=== PATIENT | female | born 1945 | race Two or more races ===

== ENCOUNTER 2020-11-23 21:19 | Emergency (ER) | payer OTHER ==
[~2020-11-23] VITALS: Ht 177.8 cm; Wt 70.3 kg
[2020-11-23] MEDS ORDERED: LANTUS SOL100 UNIT/1 (21:55)
[2020-11-23] MEDS ORDERED: METFORMIN HCL500 MG (21:56)
== END 2020-11-24 07:08 | disposition designated cancer center or children's hospital (05) ==
LOC: ER 21:19
DX: I63.89 Other cerebral infarction (principal); R41.0 Disorientation, unspecified; R47.01 Aphasia; R53.1 Weakness

== ENCOUNTER 2022-11-21 13:23 | Outpatient (CLI) | payer OTHER ==
[~2022-11-21 13:23] MED LIST: LANTUS SOL100 UNIT/1; METFORMIN HCL500 MG
== END 2022-11-21 13:31 | disposition home or self-care (01) ==
LOC: MRI 13:23
DX: M25.562 Pain in left knee (principal)